=== PATIENT | female | born 1955 | race African-American/Black ===

== ENCOUNTER 2016-08-28 15:13 | Emergency (ER) | payer BC ==
--- NOTE | 2016-08-28 15:24 | ER Document Report ---
ED Medical Screen (RME) - General Stated Complaint: BILATERAL EAR CONCERNS Notes: Patient states ears started with a sudden onset of constant, high pitch buzzing yesterday. Complains of a pain level of 5 out of 5, denies cough or cold symptoms. Patient does state she has a slight posterior headache that started today. Denies nausea or vomiting. Denies any previous headache of similar symptoms. Patient does admit to her hearing being muffled. I have greeted and performed a rapid initial assessment of this patient. A comprehensive ED assessment and evaluation of the patient, analysis of test results and completion of the medical decision making process will be conducted by additional ED providers. TRAVEL OUTSIDE OF THE [place] IN LAST 30 DAYS: No - Related Data Allergies/Adverse Reactions: No Known Allergies Allergy (Verified 08/14/15 07:43) Past Medical History - Past Medical History Cardiac Medical History: Reports: Hx Hypertension Denies: Hx Coronary Artery Disease, Hx Heart Attack Pulmonary Medical History: Denies: Hx Asthma, Hx Bronchitis, Hx COPD, Hx Pneumonia Neurological Medical History: Denies: Hx Cerebrovascular Accident, Hx Seizures Endocrine Medical History: Reports: Hx Diabetes Mellitus Type 2 Musculoskeltal Medical History: Denies Hx Arthritis Past Surgical History: Reports: Hx Section - 3, Hx Hysterectomy - Immunizations Immunizations up to date: No Hx Diphtheria, Pertussis, Tetanus Vaccination: No Physical Exam - Vital signs Vitals: Temp Pulse Resp BP Pulse Ox 98.5 F 98 20 163/89 H 98 08/28/16 15:19 08/28/16 15:19 08/28/16 15:19 08/28/16 15:19 08/28/16 15:19 Course - Vital Signs Vital signs: Temp Pulse Resp BP Pulse Ox 98.5 F 98 20 163/89 H 98 08/28/16 15:19 08/28/16 15:19 08/28/16 15:19 08/28/16 15:19 08/28/16 15:19
--- NOTE | 2016-08-28 16:26 | ER Document Report ---
ED ENT - General Chief Complaint: Ear Pain Stated Complaint: BILATERAL EAR CONCERNS Mode of Arrival: Ambulatory Information source: Patient Notes: Patient presents complaining of high pitched noise in her ear that started yesterday. Patient states that she used peroxide to irrigate her ears which temporarily helped the ringing in her ears but then the ringing returned to the left ear. Patient states she presently only has the ringing in the left ear. Patient denies any ear pain or drainage from ears. Patient states that she did have a similar episode about 7 years ago in which she was treated for an ear infection that helped her symptoms. Patient denies any medication changes, any head injury or any loud noise exposure. Patient states that the ring and has caused her to develop a mild headache to the frontal area of her head. TRAVEL OUTSIDE OF THE [place] IN LAST 30 DAYS: No - HPI Patient complains to provider of: Ear problem Onset: Yesterday Onset/Duration: Persistent Pain Level: 1 Location of pain: Ears Associated symptoms: Tinnitus. denies: Congestion, Cough, Ear pain, Foreign body, Runny nose, Sinus drainage, Sore throat Similar symptoms previously: Yes Recently seen / treated by doctor: No - Related Data Allergies/Adverse Reactions: No Known Allergies Allergy (Verified 08/14/15 07:43) Past Medical History - General Information source: Patient - Social History Smoking Status: Current Every Day Smoker Chew tobacco use (# tins/day): No Frequency of alcohol use: None Drug Abuse: None Occupation: accounting Family History: Reviewed & Not Pertinent Patient has suicidal ideation: No Patient has homicidal ideation: No - Past Medical History Cardiac Medical History: Reports: Hx Heart Attack, Hx Hypertension Denies: Hx Coronary Artery Disease Pulmonary Medical History: Denies: Hx Asthma, Hx Bronchitis, Hx COPD, Hx Pneumonia Neurological Medical History: Denies: Hx Cerebrovascular Accident, Hx Seizures Endocrine Medical History: Reports: Hx Diabetes Mellitus Type 2 Renal/ Medical History: Denies: Hx Peritoneal Dialysis Musculoskeltal Medical History: Denies Hx Arthritis Past Surgical History: Reports: Hx Section - 3, Hx Hysterectomy - Immunizations Immunizations up to date: No Hx Diphtheria, Pertussis, Tetanus Vaccination: No Review of Systems - Review of Systems Constitutional: No symptoms reported. denies: Fever, Recent illness EENT: Other - Ringing in left ear. denies: Ear pain, Nose congestion, Nose discharge, Throat pain Cardiovascular: No symptoms reported. denies: Palpitations, Dizziness Respiratory: No symptoms reported. denies: Cough, Short of breath Gastrointestinal: No symptoms reported. denies: Nausea, Vomiting Genitourinary: No symptoms reported Female Genitourinary: No symptoms reported Musculoskeletal: No symptoms reported. denies: Back pain, Neck pain Skin: No symptoms reported. denies: Rash Hematologic/Lymphatic: No symptoms reported Neurological/Psychological: Headaches. denies: Confusion, Weakness, Lost consciousness Physical Exam - Vital signs Vitals: Temp Pulse Resp BP Pulse Ox 98.5 F 98 20 163/89 H 98 08/28/16 15:19 08/28/16 15:19 08/28/16 15:19 08/28/16 15:19 08/28/16 15:19 - General General appearance: Appears well, Alert In distress: None - HEENT Head: Normocephalic, Atraumatic. No: Hoffman's sign, Ecchymosis, [place]'s eyes Eyes: Normal Conjunctiva: Normal Cornea: Normal Pupils: PERRL Ears: Normal. No: Ecchymosis, Tragus tenderness External canal: Normal. No: Blood in canal, Cerumen impaction, Erythema, Foreign body Tympanic membrane: Normal. No: Bulging, Hemotympanum, Perforation, Purulent effusion, Retracted, Serous effusion Hearing loss: No: Left, Right Nasal: Normal. No: Swelling Mouth/Lips: Normal Mucous membranes: Normal Pharynx: Normal Neck: Normal, Supple. No: Lymphadenopathy - Respiratory Respiratory status: No respiratory distress Chest status: Nontender Breath sounds: Normal. No: Rales, Rhonchi, Stridor, Wheezing Chest palpation: Normal - Cardiovascular Rhythm: Regular Heart sounds: S1 appreciated, S2 appreciated Murmur: No - Back Back: Normal, Nontender - Extremities General upper extremity: Normal inspection, Normal strength General lower extremity: Normal inspection, Normal strength - Neurological Neuro grossly intact: Yes Cognition: Normal Orientation: AAOx4 Dwight Coma Scale Eye Opening: Spontaneous [place]ight Coma Scale Verbal: Oriented [place] Coma Scale Motor: Obeys Commands Dwight Coma Scale Total: 15 Speech: Normal. No: Dysarthria Cranial nerves: Normal. No: Facial palsy, Tongue deviation Cerebellar coordination: Normal. No: Gait ataxia Motor strength normal: LUE, RUE, LLE, RLE - Psychological Associated symptoms: Normal affect, Normal mood - Skin Skin Temperature: Warm Skin Moisture: Dry Skin Color: Normal Course - Re-evaluation Re-evalutation: 08/28/16 16:[address] Pierre regarding patient presentation recommends CT head imaging 08/28/16 16:[address] Pierre, agrees with discharge planning care. Patient given a handout with patient education on tinnitus printed from up-to- date website - Vital Signs Vital signs: Temp Pulse Resp BP Pulse Ox 98.1 F 79 20 152/92 H 98 08/28/16 16:15 08/28/16 16:15 08/28/16 16:15 08/28/16 16:15 08/28/16 16:15 - Diagnostic Test Radiology reviewed: Reports reviewed Discharge - Discharge Clinical Impression: Hx of essential hypertension, Tinnitus of left ear Condition: Stable Disposition: HOME, SELF-CARE Additional Instructions: Return immediately for any new or worsening symptoms Followup with your primary care provider, call Wednesday to make a followup appointment Follow up with an research associate molecular biology, call Wednesday for an appointment Referrals: [facility] [Provider Group] - 08/31/16 [facility] [Provider Group] - 08/31/16
[2016-08-28 16:37] VITALS: BP 152/92
== END 2016-08-28 16:56 | disposition home or self-care (01) ==
LOC: ER 15:13
DX: H93.12 Tinnitus, left ear (principal); I10 Essential (primary) hypertension; H92.03 Otalgia, bilateral; F17.200 Nicotine dependence, unspecified, uncomplicated
CPT/HCPCS: 70450; 99283

== ENCOUNTER 2016-09-16 07:33 | Day surgery (SDC) | payer BC ==
--- NOTE | 2016-09-09 14:05 | HISTORY AND PHYSICAL E ---
History and Physical NAME: YAYA HOLMAN : 1955 AGE: 60Y ADMITTED: 09/16/2016 ROOM: CHIEF COMPLAINT: Patient admitted regarding colonoscopy. She does have a history of colon polyps, adenoma polyp cecum, adenoma polyp transverse colon. REVIEW OF SYSTEMS: CARDIOVASCULAR: Hypertension. ENDOCRINE: Diabetes. GASTROINTESTINAL: Colon screening. History of polyps. ONCOLOGY/HEMATOLOGY: History of polyps, adenoma. FAMILY HISTORY: Father had CA of the lung. Mom had CA of the colon. MEDICATIONS: 1. Metformin. 2. Blood pressure medications. PHYSICAL EXAMINATION: GENERAL: Pleasant, alert, oriented. VITAL SIGNS: Blood pressure is 130/80, pulse 80, respirations 20, temperature 98. HEAD, EYES, EARS, NOSE, THROAT: Normal. NECK: Supple. CARDIOVASCULAR: Normal. LUNGS: Clear. ABDOMEN: Soft. NEUROLOGIC: Negative. CONCLUSION: Colon screening, history of polyps. PLAN: Colonoscopy. Admit 09/16/2016. DICTATING PHYSICIAN: RADU WALSH M.D. 5075M 1326 Y#: [id number] ID: [id number] JOB#: [id number] ACCT: [id number] cc:RADU WALSH M.D. >
[~2016-09-16 07:33] MED LIST: EPINEPHRINE INJ 1 MG/10 ML DISP.SYRIN ONE; FLUMAZENIL INJ 0.5 MG/5 ML VIAL IV ONE; GLUCAGON,HUMAN RECOMB 1 MG INJ ONE; GLYCOPYRROLATE INJ 0.4 MG/2 ML VIAL ONE; LIDOCAINE 2% JELLY 30 ML TUBE ONE; NALOXONE HCL INJ/PF 0.4 MG/1 ML SDV ONE; ONDANSETRON HCL INJ/PF 4 MG/2 ML SDV ONE
[2016-09-16] MEDS: MIDAZOLAM 2 MG/2 ML INJ ONE ×2 (08:22→08:35)
[2016-09-16] MEDS: FENTANYL CITRATE INJ/PF 100 MCG/2 ML AMPUL ONE ×2 (08:24→08:37)
[2016-09-16 09:54] VITALS: BP 103/60
[2016-09-16 10:10] LABS: ABSOLUTE EOSINOPHILS # (AUTO) 0.1 10^3/uL (0.0-0.6); ABSOLUTE MONOCYTES (AUTO) 0.7 10^3/uL (0.1-1.4); ABSOLUTE NEUT (AUTO) 3.5 10^3/uL (1.7-8.2); BASOPHILS % (AUTO) 0.6 % (0-2); EOSINOPHILS % (AUTO) 1.7 % (0-6); HEMATOCRIT 39.4 % (36.0-47.0); HEMOGLOBIN 13.5 g/dL (12.0-15.5); HGB HCT DIFFERENCE 1.1; MEAN CORPUSCULAR HEMOGLOBIN 30.2 pg (27.0-33.4); MEAN CORPUSCULAR HGB CONC 34.2 g/dL (32.0-36.0); MEAN CORPUSCULAR VOLUME 88 fl (80-97); MONOCYTES % (AUTO) 10.5 % (3-13); RED BLOOD COUNT 4.47 10^6/uL (3.72-5.28); SEGMENTED NEUTROPHILS % (AUTO) 55.2 % (42-78); WHITE BLOOD COUNT 6.3 10^3/uL (4.0-10.5)
--- NOTE | 2016-09-16 12:12 | OPERATIVE REPORT E ---
Operative Report NAME: YAYA HOLMAN : 1955 AGE: 60Y DATE OF SURGERY: 09/16/2016 ROOM: PREOPERATIVE DIAGNOSIS: History of polyps. POSTOPERATIVE DIAGNOSES: 1. A 3-mm sessile polyp in mid transverse colon. 2. A 2-mm polyp at rectosigmoid junction. PROCEDURE: Colonoscopy to the cecum. SURGEON: RADU WALSH M.D. ANESTHESIA: Versed 3 mg and Fentanyl 100 mcg. TISSUE REMOVED OR ALTERED: Biopsy of polyp in transverse colon. Biopsy of polyp in rectum. PROCEDURE: Rectal exam - External hemorrhoids. Rectosigmoid shows diminutive polyps. Sigmoid and descending colon difficult intubation but successful and shows no polyps. Transverse colon shows a small sessile polyp, 3 mm, biopsy obtained. Ascending colon normal. Cecum normal. Scope withdrawn through cecum, ascending, transverse, descending and sigmoid all the way to the rectum. CONCLUSIONS: 1. Sessile polyp, mid transverse colon. Biopsy obtained. 2. Small polyps in the rectosigmoid junction, biopsy obtained. PLAN: Recommend follow-up colonoscopy in 1 year pending biopsy results. DICTATING PHYSICIAN: RADU WALSH M.D. 1209M 24 PHY#: [id number] ID: [id number] JOB#: [id number] ACCT: [id number] cc:RADU WALSH M.D. >
--- NOTE | 2016-09-16 12:12 | DISCHARGE SUMMARY E ---
Discharge Summary NAME: YAYA HOLMAN : 1955 AGE: 60Y ADMITTED: 09/16/2016 DISCHARGED: 09/16/2016 PROCEDURE: Colonoscopy, biopsy. HOSPITAL COURSE: The patient is a 60-year-old female, has history of polyp, adenoma polyp in the past. She does have a history of polyps in the past, cecum and transverse colon. Today's colonoscopy shows small polyp mid transverse colon. Biopsy obtained small polyp rectosigmoid. She does have strong family history of colon cancer. Her mom has CA of the colon. Today's colonoscopy shows a polyp mid transverse colon and polyps in the rectosigmoid junction. DISCHARGE PLAN: Soft, low-residue diet. Awaiting biopsy results. Consider colonoscopy after 1 year pending biopsy results. Hold aspirin 5 days. MEDICATIONS: 1. Norvasc. 2. Victoza. 3. Glucophage. 4. Baby aspirin. DICTATING PHYSICIAN: RADU WALSH M.D. 1654M [id number] PHY#: [id number] ID: [id number] JOB#: [id number] ACCT: [id number] cc:RADU WALSH M.D. >
== END 2016-09-16 09:50 | disposition home or self-care (01) ==
LOC: END 07:33
PROVIDERS: ATTEND Specialist
PROC: 0DBL8ZX Excision of Transverse Colon, Via Natural or Artificial Opening Endoscopic, Diagnostic (ICD-10-PCS; 2016-09-16)
PROC: 0DBN8ZX Excision of Sigmoid Colon, Via Natural or Artificial Opening Endoscopic, Diagnostic (ICD-10-PCS; 2016-09-16)
PROC: 0DBP8ZX Excision of Rectum, Via Natural or Artificial Opening Endoscopic, Diagnostic (ICD-10-PCS; principal; 2016-09-16 08:00)
DX: Z12.11 Encounter for screening for malignant neoplasm of colon (principal); D12.3 Benign neoplasm of transverse colon; D12.7 Benign neoplasm of rectosigmoid junction; Z80.0 Family history of malignant neoplasm of digestive organs; I10 Essential (primary) hypertension; E11.9 Type 2 diabetes mellitus without complications; K44.9 Diaphragmatic hernia without obstruction or gangrene; Z79.84 Long term (current) use of oral hypoglycemic drugs; Z79.899 Other long term (current) drug therapy; Z79.82 Long term (current) use of aspirin
CPT/HCPCS: 45380; 36415; 82962; 85025; 88305 ×2; J2250; J3010; J1610; J2405; J0171; J2310; J3490

== ENCOUNTER 2017-01-07 10:37 | Day surgery (SDC) | payer BC ==
[~2017-01-07 10:37] MED LIST changes: -EPINEPHRINE INJ 1 MG/10 ML DISP.SYRIN ONE; -FLUMAZENIL INJ 0.5 MG/5 ML VIAL IV ONE; -GLUCAGON,HUMAN RECOMB 1 MG INJ ONE; -GLYCOPYRROLATE INJ 0.4 MG/2 ML VIAL ONE; +KETOROLAC TROMETHAMINE 0.45% 4 DROP/0.4 ML DROPERETTE OS PRN; -LIDOCAINE 2% JELLY 30 ML TUBE ONE; -NALOXONE HCL INJ/PF 0.4 MG/1 ML SDV ONE; -ONDANSETRON HCL INJ/PF 4 MG/2 ML SDV ONE
[2017-01-07] MEDS ORDERED: LIDOCAINE 1% INJ-PF (10 MG/ML) 30 ML SDV ONE (10:40)
[2017-01-07] MEDS ORDERED: CHONDR SU A NA/HYALUR INTRAOC KIT (SURGICARE) ONE (10:40)
[2017-01-07] MEDS ORDERED: PHENYLEPHRINE/KETOROLAC 1%-0.3% 4 ML VIAL ONE (10:40)
[2017-01-07] MEDS: TROPICAMIDE 1% OPH SOLN 3 ML OS PRN ×3 (10:54→11:12)
[2017-01-07] MEDS: CYCLOPENTOLATE 0.2%/PHENYLEPHRINE 1% OPH SOLN 2 ML OS PRN ×3 (10:54→11:13)
[2017-01-07] MEDS: TETRACAINE HCL 0.5% OPH SOLN 2 ML OS PRN ×3 (10:54→11:17)
[2017-01-07] MEDS: BESIFLOXACIN HCL 0.6% OPH SUSP 5 ML BOTTLE OS PRN ×3 (10:55→11:42)
[2017-01-07] MEDS ORDERED: TRYPAN BLUE 0.06 % OPH SOLN 0.5 ML DISP.SYRIN ONE (11:00)
[2017-01-07] MEDS ORDERED: FENTANYL CITRATE INJ/PF 100 MCG/2 ML AMPUL ONE (11:07)
[2017-01-07] MEDS ORDERED: MIDAZOLAM 2 MG/2 ML INJ ONE (11:07)
--- NOTE | 2017-01-08 07:42 | [facility] OPERATIVE REPORT E ---
[facility] NAME: YAYA HOLMAN AGE: 61Y DATE OF SURGERY: 01/07/2017 ROOM: PREOPERATIVE DIAGNOSES: 1. CATARACT, LEFT EYE. 2. PUPIL MYOSIS OF THE LEFT EYE. POSTOPERATIVE DIAGNOSES: 1. CATARACT, LEFT EYE. 2. PUPIL MYOSIS OF THE LEFT EYE. OPERATION: Complex cataract extraction with use of the Malyugin ring due to pupillary myosis. SURGEON: ERIC LATIF M.D. ANESTHESIA: Topical. PROCEDURE: After obtaining appropriate consent, the patient's left eye was prepped and draped in sterile fashion as well as the surgeon in a sterile manner and cataract surgery was started. First a paracentesis blade was used to make a small side-port incision. Viscoelastic was used to inflate the anterior chamber. Next a 2.4 mm incision was made with the paracentesis blade. A continuous capsulorrhexis incision was made using a cystotome and Utrata forceps. Following this hydrodissection was carried out to make the lens fully loose and mobile and it was rotated 90 degrees. Following this, a codhnj-vys-icbobla technique was used to phacoemulsify the lens with a CDE of 13.00. The remaining cortex was removed with irrigation/aspiration. Provisc was instilled into the capsular bag to inflate the bag. A SN60WF, 21.5 diopter lens was placed. The remaining viscoelastic material was removed with irrigation/aspiration. Following this, a 10-0 nylon suture was used to close the incision and it was found to be watertight. Vigamox was instilled in the eye and a protective shield was placed over the eye. The patient returned to the postoperative recovery in stable condition. Prior to making the capsulorrhexis, a Malyugin ring was inserted due to a very myotic pupil. This was removed at the end of the case. DICTATING PHYSICIAN: ERIC LATIF M.D. 1265M 0733 PHY#: [id number] ID: [id number] JOB#: [id number] ACCT: [id number] cc:ERIC LATIF M.D. >
--- NOTE | 2017-01-08 07:47 | [facility] DISCHARGE SUMMARY E ---
[facility] Discharge Summary NAME: YAYA HOLMAN AGE: 61Y ADMITTED: 01/07/2017 DISCHARGED: 01/07/2017 HOSPITAL COURSE: This is a 61-year-old female who underwent complex cataract extraction with use of the Malyugin ring. DIAGNOSIS: 1. CATARACT, LEFT EYE. 2. PUPIL MYOSIS INDICATIONS FOR SURGERY: She underwent surgery because she had difficulty with glare from street lights. DISCHARGE INSTRUCTIONS: She is to be on a regular diet; no bending at her waist; no heavy lifting; She is to use Besivance, Ilevro and Durezol at 3:00 p.m. and 8:00 p.m.; and, sleep with a rigid shield. I will see her for her 1-day postoperative tomorrow. DICTATING PHYSICIAN: ERIC LATIF M.D. 1265M 0740 PHY#: [id number] ID: [id number] JOB#: [id number] ACCT: [id number] cc:ERIC LATIF M.D. > MTDD
== END 2017-01-07 12:22 | disposition home or self-care (01) ==
LOC: SC 10:37
PROVIDERS: ATTEND Internal Medicine
PROC: 08RK3JZ Replacement of Left Lens with Synthetic Substitute, Percutaneous Approach (ICD-10-PCS; principal; 2017-01-07 12:00)
DX: H25.813 Combined forms of age-related cataract, bilateral (principal); H57.03 Miosis; E11.3593 Type 2 diabetes mellitus with proliferative diabetic retinopathy without macular edema, bilateral; H04.123 Dry eye syndrome of bilateral lacrimal glands; I10 Essential (primary) hypertension; I25.2 Old myocardial infarction; Z87.891 Personal history of nicotine dependence; Z79.899 Other long term (current) drug therapy; Z79.84 Long term (current) use of oral hypoglycemic drugs
CPT/HCPCS: 66982; 82962; V2632; J2250; J3490 ×2; J3010; C9447; 142

== ENCOUNTER 2017-02-04 10:09 | Day surgery (SDC) | payer BC ==
[~2017-02-04 10:09] MED LIST changes: +CHONDR SU A NA/HYALUR INTRAOC KIT (SURGICARE) ONE; +KETOROLAC TROMETHAMINE 0.45% 4 DROP/0.4 ML DROPERETTE OD PRN; -KETOROLAC TROMETHAMINE 0.45% 4 DROP/0.4 ML DROPERETTE OS PRN; +LIDOCAINE 1% INJ-PF (10 MG/ML) 30 ML SDV ONE; +PHENYLEPHRINE/KETOROLAC 1%-0.3% 4 ML VIAL ONE
[2017-02-04] MEDS: CYCLOPENTOLATE 0.2%/PHENYLEPHRINE 1% OPH SOLN 2 ML OD PRN ×3 (10:21→10:50)
[2017-02-04] MEDS: TROPICAMIDE 1% OPH SOLN 3 ML OD PRN ×3 (10:21→10:50)
[2017-02-04] MEDS: BESIFLOXACIN HCL 0.6% OPH SUSP 5 ML BOTTLE OD PRN ×4 (10:22→11:51)
[2017-02-04] MEDS: TETRACAINE HCL 0.5% OPH SOLN 2 ML OD PRN ×3 (10:23→11:16)
[2017-02-04] MEDS ORDERED: MIDAZOLAM 2 MG/2 ML INJ ONE (10:56)
[2017-02-04] MEDS ORDERED: TOBRAMYCIN SULFATE/DEXAMETH OPH SUSP 2.5 ML ONE (11:50)
[2017-02-04] MEDS ORDERED: TOBRAMYCIN SULFATE/DEXAMETH OPH OINTMENT 3.5 GM ONE ×2 (11:51)
--- NOTE | 2017-02-04 15:08 | [facility] OPERATIVE REPORT E ---
[facility] Operative Report NAME: YAYA HOLMAN AGE: 61Y DATE OF SURGERY: 02/04/2017 ROOM: PREOPERATIVE DIAGNOSIS: 1. CATARACT, RIGHT EYE. 2. PUPIL MIOSIS. POSTOPERATIVE DIAGNOSIS: 1. CATARACT, RIGHT EYE. 2. PUPIL MIOSIS. OPERATION: Complex cataract extraction with use of a Malyugin ring due to poor pupillary dilation. SURGEON: ERIC LATIF M.D. ANESTHESIA: Topical. PROCEDURE: After obtaining appropriate consent, the patient's right eye was prepped and draped in sterile fashion as well as the surgeon in a sterile manner and cataract surgery was started. First a paracentesis blade was used to make a small side-port incision. Viscoelastic was used to inflate the anterior chamber. Next a 2.4 mm incision was made with the paracentesis blade. A continuous capsulorrhexis incision was made using a cystotome and Utrata forceps. Following this hydrodissection was carried out to make the lens fully loose and mobile and it was rotated 90 degrees. Following this, a izszbt-ccw-gzwsgtr technique was used to phacoemulsify the lens with a CDE of 12.34. The remaining cortex was removed with irrigation/aspiration. Provisc was instilled into the capsular bag to inflate the bag. A SN60WF, 20.5 diopter lens was placed. The remaining viscoelastic material was removed with irrigation/aspiration. Following this, a 10-0 nylon suture was used to close the incision and it was found to be watertight. Vigamox was instilled in the eye and a protective shield was placed over the eye. The patient returned to the postoperative recovery in stable condition. Prior to making the capsulorrhexis, a Malyugin was inserted due to poor pupillary dilation. This was removed at the end of the case. DICTATING PHYSICIAN: ERIC LATIF M.D. 1265M 1458 PHY#: [id number] ID: [id number] JOB#: [id number] ACCT: [id number] cc:ERIC LATIF M.D. >
--- NOTE | 2017-02-04 15:13 | [facility] DISCHARGE SUMMARY E ---
[facility] Discharge Summary NAME: YAYA HOLMAN AGE: 61Y ADMITTED: 02/04/2017 DISCHARGED: 02/04/2017 HOSPITAL COURSE: This is a 61-year-old female who underwent complex cataract extraction with use of the Malyugin ring to the right eye. DIAGNOSES: 1. CATARACT, RIGHT EYE. 2. PUPIL MIOSIS, RIGHT EYE. INDICATIONS: She underwent surgery because she was having difficulty seeing the computer screen. DISCHARGE INSTRUCTIONS: She is to be on a regular diet; no bending at her waist; no heavy lifting; she is to use her Besivance, Ilevro and Durezol at 3:00 p.m. and 8:00 p.m.; and sleep with a rigid shield. I will see her for her 1-day postoperative tomorrow. DICTATING PHYSICIAN: ERIC LATIF M.D. 1265M 1505 PHY#: [id number] ID: [id number] JOB#: [id number] ACCT: [id number] cc:ERIC LATIF M.D. >
== END 2017-02-04 12:18 | disposition home or self-care (01) ==
LOC: SC 10:09
PROVIDERS: ATTEND Internal Medicine
PROC: 08RJ3JZ Replacement of Right Lens with Synthetic Substitute, Percutaneous Approach (ICD-10-PCS; principal; 2017-02-04 11:30)
DX: H25.811 Combined forms of age-related cataract, right eye (principal); H57.03 Miosis; Z96.1 Presence of intraocular lens; Z98.42 Cataract extraction status, left eye; E11.9 Type 2 diabetes mellitus without complications; I10 Essential (primary) hypertension; F17.210 Nicotine dependence, cigarettes, uncomplicated; I25.2 Old myocardial infarction; Z79.84 Long term (current) use of oral hypoglycemic drugs; Z79.82 Long term (current) use of aspirin; Z79.899 Other long term (current) drug therapy
CPT/HCPCS: 66982; 82962; V2632; J2250; J3490 ×3; C9447; 142